=== PATIENT | female | born 1970 | race American Indian/Alaskan Native ===

== ENCOUNTER 2018-03-15 09:40 | Day surgery (SDC) | payer BC ==
[2018-03-15] MEDS ORDERED: NACL 0.9% 1000 ML 1,000 ML IV SCH (10:00)
[2018-03-15] MEDS ORDERED: DIPRIVAN 10 MG/ML IV ONE (10:46)
[2018-03-15] MEDS ORDERED: XYLOCAINE 1% 20 mL ONE (11:08)
--- NOTE | 2018-03-15 11:29 | Discharge Summary ---
Short Stay Discharge Plan Activity: advance as tolerated Weight Bearing Status: Weight Bear as Tolerated Diet: regular Follow up with: MARY ZHENG MD [Primary Care Provider] - 7 Days
--- NOTE | 2018-03-15 11:29 | Operative Report ---
Operative Report Operative Report: Date: 03/15/2018 Operative Report: Date of procedure: 03/15/2018 Procedure: Esophagogastroduodenoscopy with multiple mucosal biopsies Attending physician: Jesus Shepherd MD Self Propelled Dredge Operator: Jesus Shepherd MD Indication: Patient is a 47 year-old female who presented with epigastric pain and heartburn and indigestion. An upper endoscopy is done to evaluate patient so that treatment may be directed based on the findings. Consent: Informed consent was obtained after advising the patient and family regarding nature of this procedure, its indications, potential benefits as well as possible complications including but not limited to bleeding perforation and adverse reaction to medication, infection as well as other cardiopulmonary complications. An informed written and verbal consent was then obtained after due opportunity was provided for questions and answers. Monitoring: Patient was monitored continuously with pulse oximetry and electrocardiographic recordings as well as blood pressure recordings. Vital signs remained stable throughout this procedure with no untoward events. Preoperative assessment: Patient was assessed immediately prior to this procedure for capacity to tolerate monitored anesthesia care and moderate sedation as well as general anesthesia. Patient's ASA classification is 2, Mallampati class is 2, Hyomental distance is 3. Instrument: [employer] video endoscope Medications: Propofol given intravenously in divided doses. For details please refer to anesthesia records. Description of procedure: Patient was placed in the left lateral decubitus position after achieving sedation, the endoscope was introduced into the esophagus under direct vision. It was then advanced beyond the esophagus into the stomach and then beyond the stomach into the duodenum and to the second portion of the duodenum. It was subsequently withdrawn with careful inspection of all mucosal surfaces with the following findings. Findings: In the distal esophagus, patient had mild erosive esophagitis. There was a 2-3 cm sliding hiatal hernia seen on entry into the stomach There was erythema and erosions in the gastric antrum. Biopsies of the antrum were obtained for histopathology. The duodenum was normal to second portion. Impression: Mild erosive esophagitis. Hiatal hernia. Mucosal changes suggestive of gastritis. Plan: Follow pathology report. Continue treatment proton pump inhibitors. Maintain antireflux measures. Direct additional treatment based on the pathology report.
[2018-03-15 11:46] VITALS: BP 129/83
--- NOTE | 2018-03-15 14:37 | Post Anesthesia Evaluation ---
- Post Anesthesia Evaluation Patient Participated: Yes Airway Patent: Yes Stable Respiratory Function: Yes Nausea/Vomiting: No Temp > 96.8F: Yes Pain Manageable: Yes Adequeate Hydration: Yes Anesthesia Complications: No
== END 2018-03-15 09:41 | disposition home or self-care (01) ==
LOC: GIO 09:40
PROVIDERS: ATTEND Internal Medicine Gastroenterology
DX: K21.0 Gastro-esophageal reflux disease with esophagitis (principal); K29.50 Unspecified chronic gastritis without bleeding; K44.9 Diaphragmatic hernia without obstruction or gangrene; I10 Essential (primary) hypertension; Z79.82 Long term (current) use of aspirin
CPT/HCPCS: 43239; 88305; 88342; J2704; J7030